=== PATIENT | female | born 1960 | race Caucasian/White ===

== ENCOUNTER 2024-09-12 18:07 | Emergency (ER) | payer MEDICAID ==
[~2024-09-12] VITALS: Ht 162.6 cm; Wt 50.0 kg
[2024-09-12 18:10] VITALS: O2SAT 90
[2024-09-12 19:27] LABS: BASOPHILS % 0.7 % (0.0-2.0); HEMATOCRIT. 42.3 % (36.0-48.0); LYMPHOCYTES % 27.5 % (20.0-50.0); MEAN CORPUSCULAR HEMOGLOBIN 29.3 pg (28.0-32.0); MEAN CORPUSCULAR HGB CONC 33.1 g/dL (31.0-37.0); MEAN CORPUSCULAR VOLUME 88.5 fL (81.0-99.0); MEAN PLATELET VOLUME 9.3 fl (7.4-10.4); MONOCYTES % 6.9 % (2.0-8.0); NEUTROPHILS % 61.9 % (40.0-76.0); PLATELET 310 x1000/uL (130-400); RED BLOOD CELL COUNT 4.78 mill/uL (4.2-5.4); RED CELL DISTRIBUTION WIDTH 14.2 % (11.6-14.6); WHITE BLOOD COUNT 9.9 x1000/uL (4.5-11.0)
[2024-09-12 19:32] LABS: CHLORIDE 111 mEq/L (98-107); POTASSIUM 3.8 mEq/L (3.5-5.1); PROTHROMBIN TIME 10.9 sec (9.6-11.0); SODIUM 143 mEq/L (136-145)
[2024-09-12 19:33] LABS: CALCIUM 9.8 mg/dL (8.7-10.4); CARBON DIOXIDE 22 mEq/L (21-32)
[2024-09-12 19:38] LABS: CREATININE 1.1 mg/dL (0.6-1.0); GLUCOSE 189 mg/dL (70-105); UREA NITROGEN BLOOD 24 mg/dL (9-23)
[2024-09-12 19:45] LABS: TROPONIN I HIGH SENSITIVITY 46 ng/L (3.0-34)
[2024-09-12 20:00] VITALS: BP 155/90; PULSE 106; RESP 19; TEMP 36.78072; O2SAT 97
[2024-09-12] MEDS: FUROSEMIDE 40MG/4ML VIAL IVP ONE (20:15)
[2024-09-12] MEDS: CEFTRIAXONE 2GM/50ML 50 ML IV STA (20:15)
== END 2024-09-12 21:00 | disposition left against medical advice (07) ==
LOC: ER 18:07 → EDBEDREQTM 19:49 → EDBEDREQ 19:49 → ER 21:00
DX: R06.02 Shortness of breath (principal); I11.0 Hypertensive heart disease with heart failure; I50.9 Heart failure, unspecified; Z86.73 Personal history of transient ischemic attack (TIA), and cerebral infarction without residual deficits
CPT/HCPCS: 36415; 71045; 80048; 83880; 84484; 85025; 93005; 99285; J0696